=== PATIENT | female | born 1965 | race Caucasian/White ===

== ENCOUNTER 2017-03-21 17:39 | Emergency (ER) | payer OTHER ==
[~2017-03-21] VITALS: Ht 162.6 cm; Wt 143.2 kg
[2017-03-21] MEDS ORDERED: LISI10TA7 PO (17:56)
[2017-03-21] MEDS ORDERED: DICY10CA13 PO (17:56)
[2017-03-21] MEDS ORDERED: AMLO5TAB66 PO (17:56)
[2017-03-21] MEDS ORDERED: PRED20TA3 PO (17:56)
[2017-03-21] MEDS ORDERED: VIST50 PO (17:56)
[2017-03-21] MEDS ORDERED: MONT5TAB13 PO (17:56)
[2017-03-21] MEDS ORDERED: ATOR40TA71 PO (17:56)
[2017-03-21] MEDS ORDERED: FURO80TA87 PO (17:56)
[2017-03-21] MEDS ORDERED: OMEP20CA10 PO (17:56)
[2017-03-21 18:30] LABS: BASOPHILS # (AUTO) 0.03 K/uL (0.00-0.20); BASOPHILS % (AUTO) 0.4 % (0.0-2.0); EOSINOPHILS % (AUTO) 3.79 % (1.0-6.0); HEMATOCRIT 41.1 % (36-46); HEMOGLOBIN 13.7 g/dL (12.0-16.0); LYMPHOCYTES # (AUTO) 1.9 K/uL (1.0-4.8); LYMPHOCYTES % (AUTO) 24.2 % (22.0-44.0); MEAN CORPUSCULAR HEMOGLOBIN 27.8 pg (26.0-34.0); MEAN CORPUSCULAR HGB CONC 33.3 G/dL (31.0-37.0); MEAN CORPUSCULAR VOLUME 84 fL (80-100); MONOCYTES # (AUTO) 0.3 K/uL (0.1-1.0); MONOCYTES % (AUTO) 3.7 % (2.0-9.0); NEUTROPHILS # (AUTO) 5.4 K/uL (1.8-7.7); PLATELET COUNT (AUTO) 163 K/uL (150-450); RED BLOOD CELL COUNT(AUTO) 4.92 MIL/uL (4.00-5.20); RED CELL DISTRIBUTION WIDTH 13.8 % (11.5-14.5)
[2017-03-21 18:39] LABS: ANION GAP 10 mmol/L (8-16); CARBON DIOXIDE 27 mmol/L (22-29); CHLORIDE 108 mmol/L (98-107); CREATININE 0.84 mg/dL (0.60-1.30); GLOMERULAR FILTR. RATE CALC > 60 mL/min (>60); POTASSIUM 4.5 mmol/L (3.5-5.1); SODIUM SERUM 145 mmol/L (136-145); UREA NITROGEN, BLOOD 18 mg/dL (7-18)
[2017-03-21 18:42] LABS: PROTHROMBIN TIME 10.2 SEC (9.4-11.6)
[2017-03-21 18:46] LABS: ALANINE AMINOTRANSFERASE 56 U/L (12-78); ALBUMIN 3.7 g/dL (3.4-5.0); ASPARTATE AMINOTRANSFERASE 30 U/L (15-37); BILIRUBIN,TOTAL 0.4 mg/dL (0.1-1.0); CREATINE KINASE, TOTAL 44 U/L (26-192); TOTAL PROTEIN, SERUM 7.3 g/dL (6.4-8.2)
[2017-03-21 18:55] LABS: RBC MORPHOLOGY COMMENT NORMAL RBC MORPH
[2017-03-21 19:42] LABS: B-TYPE NATRIURETIC PEPTIDE 15 pg/mL (0-100)
[2017-03-21 22:01] VITALS: BP 152/86
== END 2017-03-21 22:06 | disposition home or self-care (01) ==
LOC: EMS 17:41
DX: M79.89 Other specified soft tissue disorders (principal); R06.02 Shortness of breath; I11.0 Hypertensive heart disease with heart failure; I50.9 Heart failure, unspecified; J44.9 Chronic obstructive pulmonary disease, unspecified; E78.00 Pure hypercholesterolemia, unspecified
CPT/HCPCS: 93005; 93970; 99285